=== PATIENT | female | born 1940 | race Caucasian/White ===

== ENCOUNTER 2022-07-24 21:40 | Emergency (ER) | payer OTHER ==
[2022-07-24 21:48] VITALS: BP 174/88; PULSE 80; RESP 20; TEMP 97.7; BMI 33.4
== END 2022-07-24 23:29 | disposition home or self-care (01) ==
LOC: JER 21:40
DX: R04.0 Epistaxis (principal)
CPT/HCPCS: 99282-25

== ENCOUNTER 2025-01-03 11:28 | Inpatient (IN) | payer OTHER ==
[2025-01-03 14:22] LABS: ABSOLUTE IMMATURE GRANULOCYTES 0.04 x10^3/uL (0.0-0.031); BASOPHILS # 0.08 x10^3/uL (0.01-0.08); EOSINOPHIL % 1.7 % (0.7-5.8); EOSINOPHILS # 0.19 x10^3/uL (0.04-0.36); MCHC 31.6 g/dl (32.2-35.5); MEAN CELL VOLUME 96.3 fl (79.4-94.8); MEAN PLT VOLUME 11.2 fl (9.4-12.3); MONOCYTE # 0.73 x10^3/uL (0.24-0.86); MONOCYTE % 6.6 % (4.7-12.5); RDW 13.6 % (12.5-17.0)
[2025-01-03 14:29] LABS: INR 1.15 (0.83-1.09); PROTHROMBIN TIME (PATIENT) 12.6 SEC (9.7-13.0)
[2025-01-03 14:31] LABS: ACTIVATED PTT 32.0 SECONDS (25.2-36.5)
[2025-01-03 14:48] LABS: GLUCOSE,RANDOM 82.0 mg/dL (74-106)
[2025-01-03 14:49] LABS: CO2 26.0 mmol/L (21-32); TOT PROT 6.0 g/dl (6.4-8.2)
[2025-01-03 14:51] LABS: ALK PHOS 95.0 U/L (40-150)
[2025-01-03 14:54] LABS: CREATININE 0.59 mg/dL (0.55-1.3); SGOT/AST 16.0 U/L (5-34); SGPT/ALT 15.0 U/L (0-55)
[2025-01-03 15:10] LABS: HCV DIAGNOSTIC IN-HOUSE W/RFLX NON-REACTIVE (NONREACTIVE); HIV INTERPRETATION NEGATIVE (NEGATIVE)
[2025-01-03] MEDS ORDERED: CEFTRIAXONE 1 GM/50 ML BAG ONE (17:55)
[2025-01-03] MEDS: ATORVASTATIN CA 10 MG TABLET (FP) PO SCH (20:21)
[2025-01-03 20:46] VITALS: BMI 32.5
[2025-01-03] MEDS: BUDESONIDE/FORMETEROL FUMARATE 160/4.5 mcg INHALER IH SCH (22:15)
[2025-01-03] MEDS: GABAPENTIN 300 MG CAPSULE PO SCH (22:17)
[2025-01-04 02:46] LABS: EPI CELLS 19 /uL (0-25.1); HYALINE CASTS 0 /uL (0-3.1); URINE APPEARANCE CLEAR; URINE BACTERIA 368 /uL (0-1359); URINE BILIRUBIN NEGATIVE (NEGATIVE); URINE COLOR YELLOW; URINE GLUCOSE (UA) NEGATIVE (NEGATIVE); URINE KETONE NEGATIVE (NEGATIVE); URINE LEUK ESTERASE 2+ (NEGATIVE); URINE NITRITE NEGATIVE (NEGATIVE); URINE PROTEIN NEGATIVE (NEGATIVE); URINE RBC 21.3 /uL (0-23.9); URINE UROBILINOGEN 0.2 mg/dL (0.2-1.0); URINE WBC 98 /uL (0-25.8)
[2025-01-04 08:24] LABS: ABSOLUTE IMMATURE GRANULOCYTES 0.04 x10^3/uL (0.0-0.031); BASOPHILS # 0.08 x10^3/uL (0.01-0.08); EOSINOPHIL % 2.0 % (0.7-5.8); EOSINOPHILS # 0.20 x10^3/uL (0.04-0.36); MCHC 31.6 g/dl (32.2-35.5); MEAN CELL VOLUME 95.9 fl (79.4-94.8); MEAN PLT VOLUME 10.6 fl (9.4-12.3); MONOCYTE # 0.71 x10^3/uL (0.24-0.86); MONOCYTE % 7.0 % (4.7-12.5); RDW 13.4 % (12.5-17.0)
[2025-01-04 08:42] LABS: GLUCOSE,RANDOM 91.0 mg/dL (74-106)
[2025-01-04 08:43] LABS: CO2 26.0 mmol/L (21-32); TOT PROT 5.7 g/dl (6.4-8.2)
[2025-01-04 08:45] LABS: ALK PHOS 88.0 U/L (40-150)
[2025-01-04 08:48] LABS: CREATININE 0.62 mg/dL (0.55-1.3); SGOT/AST 14.0 U/L (5-34); SGPT/ALT 12.0 U/L (0-55)
[2025-01-04] MEDS ORDERED: CEFTRIAXONE 1 GM in DEXTROSE 5%-WATER - 50 ML IVPB SCH (10:00)
[2025-01-04] MEDS: LISINOPRIL 20 MG TABLET PO SCH (10:33)
[2025-01-04] MEDS: amLODIPine BESYLATE 5 MG TABLET (FP) PO SCH (10:33)
[2025-01-04] MEDS: ACETAMINOPHEN 1000 MG/100 ML BAG IVPB PRN (10:34)
[2025-01-04] MEDS: CEFTRIAXONE 1 GM in DEXTROSE 5%-WATER - 50 ML IVPB SCH (11:31)
[2025-01-04] MEDS: PIPERACILLIN/TAZOB 4.5 GM 4.5 GM in DEXTROSE 5%-WATER 100 ML IVPB SCH (17:41)
[2025-01-05 06:28] VITALS: TEMP 97.9
[2025-01-05 08:10] LABS: MCHC 31.2 g/dl (32.2-35.5); MEAN CELL VOLUME 96.5 fl (79.4-94.8); MEAN PLT VOLUME 10.7 fl (9.4-12.3); RDW 13.4 % (12.5-17.0)
[2025-01-05 08:45] LABS: GLUCOSE,RANDOM 90.0 mg/dL (74-106); TOT PROT 5.3 g/dl (6.4-8.2)
[2025-01-05 08:46] LABS: CO2 26.0 mmol/L (21-32)
[2025-01-05 08:48] LABS: ALK PHOS 86.0 U/L (40-150)
[2025-01-05 08:51] LABS: CREATININE 0.74 mg/dL (0.55-1.3); SGOT/AST 13.0 U/L (5-34); SGPT/ALT 11.0 U/L (0-55)
[2025-01-05 10:02] VITALS: BP 120/58; PULSE 62; RESP 18
[2025-01-05] MEDS: PANTOPRAZOLE 40 MG TABLET PO SCH (10:32)
== END 2025-01-05 12:35 | disposition home or self-care (01) | DRG 392 ==
LOC: JER 11:28 → JERBED 17:17 → J7W 18:20
PROVIDERS: ADMIT Family Medicine; ATTEND Family Medicine
DX: K57.92 Diverticulitis of intestine, part unspecified, without perforation or abscess without bleeding (principal); K92.1 Melena; I25.10 Atherosclerotic heart disease of native coronary artery without angina pectoris; E78.5 Hyperlipidemia, unspecified; I10 Essential (primary) hypertension; J44.9 Chronic obstructive pulmonary disease, unspecified; I65.22 Occlusion and stenosis of left carotid artery; M54.9 Dorsalgia, unspecified; Z95.5 Presence of coronary angioplasty implant and graft
CPT/HCPCS: 36415; 71045-TC-FY; 74177-TC; 80053; 81003; 82272; 83735; 84100; 84484; 85025; 85027; 85610; 85730; 86140; 86803; 86850; 86900; 86901; 87045; 87046; 87086; 87209; 87389; 93005; 93010; 99285-25; Q9967